=== PATIENT | female | born 1975 | race Caucasian/White ===

== ENCOUNTER 2017-05-03 05:23 | Observation (INO) | payer BC, OTHER ==
[2017-05-03] MEDS ORDERED: ROCURONIUM 50 MG INJ (07:26)
[2017-05-03] MEDS ORDERED: PROPOFOL 20 ML (07:26)
[2017-05-03] MEDS ORDERED: SUCCINYLCHOLINE CHLORIDE 100 MG/5 ML SYG IV (07:26)
[2017-05-03] MEDS ORDERED: MIDAZOLAM 1 MG/ML 2 ML INJ (07:26)
[2017-05-03] MEDS ORDERED: LIDOCAINE 1% (MDV) 20 ML INJ (07:27)
[2017-05-03] MEDS ORDERED: CEFAZOLIN 1 GM INJ (07:38)
[2017-05-03] MEDS ORDERED: FAMOTIDINE 20 MG INJ (07:41)
[2017-05-03] MEDS ORDERED: ONDANSETRON 4 MG INJ (07:41)
[2017-05-03] MEDS ORDERED: DEXAMETHASONE 4 MG/ML 1 ML INJ (07:41)
[2017-05-03] MEDS ORDERED: PHENYLephrine (100 MCG/ML) 5ML SYG ×2 (07:44→09:23)
[2017-05-03] MEDS: BUPIVACAINE 0.25% (MPF) 30 ML INJ (08:12)
[2017-05-03] MEDS: GELATIN SIZE 100 SPONGE (08:12)
[2017-05-03] MEDS: LIDOCAINE 1%/EPI 30 ML INJ (08:12)
[2017-05-03] MEDS: THROMBIN 5000 UNIT VIAL (08:12)
[2017-05-03] MEDS ORDERED: THROMBIN 5000 UNIT VIAL (09:08)
[2017-05-03] MEDS: BETAMET NA PHOS/AC(6 MG/ML) 5ML INJ (09:45)
[2017-05-03] MEDS ORDERED: SUGAMMADEX SODIUM 200 MG/2 ML VIAL IV (09:54)
[2017-05-03] MEDS ORDERED: ACETAMINOPHEN 325 MG TAB PO (10:00)
[2017-05-03] MEDS ORDERED: HYDROCODONE/APAP (5/325) TAB PO (10:00)
[2017-05-03] MEDS ORDERED: NALOXONE (0.4 MG/ML) INJ IV (10:00)
[2017-05-03] MEDS ORDERED: NACL 0.9% 3 ML SYG IV (10:00)
[2017-05-03] MEDS ORDERED: PROCHLORPERAZINE 10 MG TAB PO (10:00)
[2017-05-03] MEDS ORDERED: HYDROmorphONE (0.2 MG/ML) 10ML SYG IV (10:30)
[2017-05-03] MEDS ORDERED: METOCLOPRAMIDE 10 MG INJ IV (10:30)
[2017-05-03] MEDS: HYDROmorphONE (0.2 MG/ML) 10ML SYG IV ×4 (10:56→11:21)
[2017-05-03] MEDS: ONDANSETRON 4 MG INJ IV ×3 (11:27→18:46)
[2017-05-03] MEDS: CEFAZOLIN 1 GM/50 ML (PMX) 50 ML IVPB ×3 (12:28→23:19)
[2017-05-03] MEDS: HYDROmorphONE 0.5 MG/0.5 ML SYG IV ×4 (12:40→23:24)
[2017-05-03] MEDS: CEPASTAT LOZENGE MT (16:22)
[2017-05-03] MEDS: SUMATRIPTAN 50 MG TAB PO (20:14)
[2017-05-03] MEDS: ATORVASTATIN 10 MG TAB PO (21:00)
[2017-05-04] MEDS: HYDROmorphONE 0.5 MG/0.5 ML SYG IV (03:40)
[2017-05-04 04:46] LABS: ADD MAN DIFF? NO
[2017-05-04 04:49] LABS: BASOPHILS % 0.3 % (0.0-2.0); HEMATOCRIT 35.2 % (37.0-47.0); LYMPHOCYTES # 1.7 10^3/ul (0.8-2.9); LYMPHOCYTES % 14.2 % (15.0-51.0); MEAN CORPUSCULAR HEMOGLOBIN 28.6 pg (29.0-33.0); MEAN CORPUSCULAR HGB CONC 34.1 g/dl (32.0-37.0); MEAN CORPUSCULAR VOLUME 83.8 fl (82.0-101.0); MEAN PLATELET VOLUME 10.2 fl (7.4-10.4); MONOCYTE # 0.8 10^3/ul (0.3-0.9); MONOCYTES % 6.5 % (0.0-11.0); NEUTROPHIL # 9.4 10^3/ul (1.6-7.5); NEUTROPHILS % 78.6 % (39.0-77.0); PLATELET COUNT 185 10^3/UL (140-415); RED CELL DISTRIBUTION WIDTH 13.1 % (11.5-14.5)
[2017-05-04 04:49] LABS: WHITE BLOOD COUNT 11.9 10^3/ul (4.8-10.8)
[2017-05-04 05:16] LABS: ALANINE AMINOTRANSFERASE 33 IU/L (13-69); ALBUMIN 4.2 g/dl (3.3-4.9); ALBUMIN/GLOBULIN RATIO 1.61; ALKALINE PHOSPHATASE 42 IU/L (42-121); ANION GAP 18 (8-16); ASPARTATE AMINO TRANSFERASE 40 IU/L (15-46); BILIRUBIN,INDIRECT 0.5 mg/dl (0-1.1); BILIRUBIN,TOTAL 0.5 mg/dl (0.2-1.3); BLOOD UREA NITROGEN 10 mg/dl (7-20); CALCIUM 9.6 mg/dl (8.4-10.2); CARBON DIOXIDE 25 mmol/L (21-31); CHLORIDE 106 mmol/L (97-110); CREATININE 0.71 mg/dl (0.44-1.00); GLUCOSE 110 mg/dl (70-220); POTASSIUM 4.6 mmol/L (3.5-5.1); SODIUM 144 mmol/L (135-144); TOTAL PROTEIN 6.8 g/dl (6.1-8.1)
[2017-05-04] MEDS: CEFAZOLIN 1 GM/50 ML (PMX) 50 ML IVPB (06:02)
[2017-05-04] MEDS: CEPASTAT LOZENGE MT (08:18)
[2017-05-04] MEDS: HYDROCODONE/APAP (5/325) TAB PO ×2 (08:20→12:13)
== END 2017-05-04 15:40 | disposition home or self-care (01) ==
LOC: SDS 05:23 → REC 09:56 → MS1 12:00
DX: M51.16 Intervertebral disc disorders with radiculopathy, lumbar region (principal); E78.5 Hyperlipidemia, unspecified
CPT/HCPCS: 63030; 72020; 80053; 85025; 88304; 97116; 97164; 97530; 99217

== ENCOUNTER 2017-10-04 09:18 | Observation (INO) | payer BC, OTHER ==
[~2017-10-04 09:18] MED LIST: CEFAZOLIN 1 GM INJ; ROCURONIUM 50 MG INJ
[2017-10-04] MEDS: CEFAZOLIN 2 GM/50 ML (PMX) 50 ML IVPB (11:30)
[2017-10-04] MEDS ORDERED: LACTATED RINGER'S 1,000 ML IV* (12:30)
[2017-10-04] MEDS ORDERED: PROPOFOL 20 ML (14:34)
[2017-10-04] MEDS ORDERED: SUCCINYLCHOLINE CHLORIDE 100 MG/5 ML SYG IV (14:34)
[2017-10-04] MEDS ORDERED: FENTAnyl 50 MCG/ML VIAL (14:35)
[2017-10-04] MEDS ORDERED: MIDAZOLAM 1 MG/ML 2 ML INJ (14:35)
[2017-10-04] MEDS ORDERED: LIDOCAINE 1% (MDV) 20 ML INJ (14:35)
[2017-10-04] MEDS: BUPIVACAINE 0.25%/EPI (SDV) 30 ML INJ (15:20)
[2017-10-04] MEDS: GELATIN SIZE 100 SPONGE (15:21)
[2017-10-04] MEDS: THROMBIN 5000 UNIT VIAL (15:21)
[2017-10-04] MEDS: POLYMYXIN/BACITRACIN 1L IRRIG (15:22)
[2017-10-04] MEDS: BETAMET NA PHOS/AC(6 MG/ML) 5ML INJ (17:07)
[2017-10-04] MEDS ORDERED: HYDROmorphONE 1 MG/5 ML IV SYRINGE IV (17:28)
[2017-10-04] MEDS ORDERED: NALOXONE (0.4 MG/ML) INJ IV (17:30)
[2017-10-04] MEDS ORDERED: NACL 0.9% 3 ML SYG IV (17:30)
[2017-10-04] MEDS ORDERED: HYDROCODONE/APAP (5/325) TAB PO (17:30)
[2017-10-04] MEDS ORDERED: ACETAMINOPHEN 325 MG TAB PO (17:30)
[2017-10-04] MEDS ORDERED: PROCHLORPERAZINE 10 MG TAB PO (17:30)
[2017-10-04] MEDS: HYDROmorphONE 1 MG/5 ML IV SYRINGE IV ×3 (17:40→18:10)
[2017-10-04] MEDS: ALBUTEROL 0.083% (NEB) 2.5 MG/3 ML AMP HHN (17:48)
[2017-10-04] MEDS: ACETAMINOPHEN 1000MG/100ML IV 100 ML IVPB (17:57)
[2017-10-04] MEDS: ONDANSETRON 4 MG INJ IV (17:57)
[2017-10-04] MEDS: MEPERIDINE 25 MG INJ IV (17:57)
[2017-10-04] MEDS: HYDROCODONE/APAP (5/325) TAB PO (17:58)
[2017-10-04] MEDS: DEXAMETHASONE 10 MG/ML 1 ML INJ IV (18:12)
[2017-10-04] MEDS: SUMATRIPTAN 6 MG/0.5 ML INJ SC (18:12)
[2017-10-04] MEDS: CEFAZOLIN 1 GM/50 ML (PMX) 50 ML IVPB (18:59)
[2017-10-04] MEDS: TOPIRAMATE SPRINKLE 25 MG CAP PO (19:00)
[2017-10-04] MEDS: DEXTROSE 5%-0.9% NACL 1,000 ML IV (21:27)
[2017-10-04] MEDS: TOPIRAMATE 25 MG TAB PO (21:27)
[2017-10-04] MEDS: HYDROmorphONE 0.5 MG/0.5 ML SYG IV (21:28)
[2017-10-05] MEDS: CEFAZOLIN 1 GM/50 ML (PMX) 50 ML IVPB ×3 (00:29→11:33)
[2017-10-05] MEDS: METOCLOPRAMIDE 10 MG INJ IV ×4 (00:30→20:26)
[2017-10-05] MEDS: HYDROmorphONE 0.5 MG/0.5 ML SYG IV ×6 (00:30→21:34)
[2017-10-05] MEDS: HYDROCODONE/APAP (5/325) TAB PO ×5 (03:26→20:26)
[2017-10-05 05:40] LABS: HEMATOCRIT 35.9 % (37.0-47.0)
[2017-10-05 06:15] LABS: ANION GAP 12 (8-16); BLOOD UREA NITROGEN 8 mg/dl (7-20); CALCIUM 9.3 mg/dl (8.4-10.2); CARBON DIOXIDE 24 mmol/L (21-31); CHLORIDE 109 mmol/L (97-110); CREATININE 0.52 mg/dl (0.44-1.00); GLUCOSE 157 mg/dl (70-220); POTASSIUM 4.4 mmol/L (3.5-5.1); SODIUM 141 mmol/L (135-144)
[2017-10-05] MEDS: DEXTROSE 5%-0.9% NACL 1,000 ML IV ×2 (07:00→15:55)
[2017-10-05] MEDS: SOD CHLORIDE 0.9% 250 ML IV (11:33)
[2017-10-05] MEDS: METHYLPREDNISOLONE 40 MG INJ IV (13:24)
[2017-10-05] MEDS: CYCLOBENZAPRINE 10 MG TAB PO (13:24)
[2017-10-06] MEDS: HYDROCODONE/APAP (5/325) TAB PO ×4 (00:28→12:05)
[2017-10-06] MEDS: DEXTROSE 5%-0.9% NACL 1,000 ML IV ×2 (02:00→11:38)
[2017-10-06] MEDS: CYCLOBENZAPRINE 10 MG TAB PO (08:17)
[2017-10-06] MEDS: METOCLOPRAMIDE 10 MG INJ IV (08:17)
== END 2017-10-06 13:11 | disposition home or self-care (01) ==
LOC: SDS 09:18 → MS1 19:35 → SDS 19:34 → MS1 19:35 → REC 17:25 → MS1 19:35
DX: M51.16 Intervertebral disc disorders with radiculopathy, lumbar region (principal); E78.5 Hyperlipidemia, unspecified
CPT/HCPCS: 63030; 72114; 80048; 84703; 85014; 85018; 94664; 97116; 97161; 97530

== ENCOUNTER 2018-08-15 06:20 | Inpatient (IN) | payer BC, OTHER ==
[2018-08-15] MEDS: CEFAZOLIN 2 GM/50 ML (PMX) 50 ML IVPB (07:00)
[2018-08-15] MEDS: LACTATED RINGER'S 1,000 ML (ENTER RATE) IV (07:08)
[2018-08-15] MEDS ORDERED: LORAZEPAM 2 MG INJ IV (07:30)
[2018-08-15] MEDS ORDERED: LABETALOL HCL 20MG INJ IV (07:30)
[2018-08-15] MEDS ORDERED: HYDROmorphONE 1 MG/5 ML IV SYRINGE IV (07:30)
[2018-08-15] MEDS ORDERED: LIDOCAINE 1% (MDV) 20 ML INJ (07:49)
[2018-08-15] MEDS ORDERED: MIDAZOLAM 1 MG/ML 2 ML INJ ×2 (07:49→12:16)
[2018-08-15] MEDS ORDERED: DESFLURANE 15 MIN (07:49)
[2018-08-15] MEDS ORDERED: SUCCINYLCHOLINE CHLORIDE 100 MG/5 ML SYG IV (07:49)
[2018-08-15] MEDS ORDERED: CA CHLORIDE 10% 10 ML SYRINGE (07:49)
[2018-08-15] MEDS ORDERED: PROPOFOL 20 ML (07:49)
[2018-08-15] MEDS ORDERED: EPINEPHrine 0.1 MG/ML SYG (07:49)
[2018-08-15] MEDS ORDERED: PHENYLephrine (100 MCG/ML) 10ML SYG (07:49)
[2018-08-15] MEDS ORDERED: ONDANSETRON 4 MG INJ ×2 (08:16→12:50)
[2018-08-15] MEDS ORDERED: DEXAMETHASONE 4 MG/ML 5 ML INJ (08:16)
[2018-08-15] MEDS ORDERED: CEFAZOLIN 1 GM INJ ×2 (08:16→12:50)
[2018-08-15] MEDS ORDERED: PHENYLephrine 10 MG INJ ×2 (09:35→12:16)
[2018-08-15] MEDS: POLYMYXIN/BACITRACIN 1L IRRIG (09:42)
[2018-08-15] MEDS: BUPIVACAINE 0.25%/EPI (SDV) 30 ML INJ ×2 (09:43→11:45)
[2018-08-15] MEDS: GELATIN SIZE 100 SPONGE (09:43)
[2018-08-15] MEDS: SURGIFOAM POWDER 1 GM KIT (09:43)
[2018-08-15] MEDS: THROMBIN 5000 UNIT VIAL (09:44)
[2018-08-15] MEDS ORDERED: ROPIVACAINE 0.5 % 30 ML VIAL (12:59)
[2018-08-15] MEDS ORDERED: PROCHLORPERAZINE 10 MG TAB PO (14:00)
[2018-08-15] MEDS ORDERED: HYDROCODONE/APAP (5/325) TAB PO (14:00)
[2018-08-15] MEDS ORDERED: NALOXONE (0.4 MG/ML) INJ IV (14:00)
[2018-08-15] MEDS ORDERED: ACETAMINOPHEN 325 MG TAB PO (14:00)
[2018-08-15] MEDS: MEPERIDINE 25 MG INJ IV (14:08)
[2018-08-15] MEDS: ONDANSETRON 4 MG INJ IV ×2 (14:09→18:10)
[2018-08-15] MEDS: HYDROmorphONE 1 MG/5 ML IV SYRINGE IV ×2 (14:20→14:48)
[2018-08-15] MEDS: HYDROmorphONE 0.2 MG/ML PCA IV (14:27)
[2018-08-15] MEDS: SUMATRIPTAN 50 MG TAB PO (14:48)
[2018-08-15] MEDS: DEXAMETHASONE 10 MG/ML 1 ML INJ IV (15:14)
[2018-08-15] MEDS: CEFAZOLIN 1 GM/50 ML (PMX) 50 ML IVPB ×2 (18:10→23:26)
[2018-08-15] MEDS: CYCLOBENZAPRINE 10 MG TAB PO (18:10)
[2018-08-15] MEDS: ATORVASTATIN 10 MG TAB PO (20:34)
[2018-08-15] MEDS: TOPIRAMATE 25 MG TAB PO (20:34)
[2018-08-15] MEDS: D5W-0.45 NACL + KCL 20 MEQ 1,000 ML IV (20:34)
[2018-08-15] MEDS: GABAPENTIN 300 MG CAP PO (20:34)
[2018-08-16 05:29] LABS: ADD MAN DIFF? NO
[2018-08-16 05:32] LABS: BASOPHILS % 0.1 % (0.0-2.0); LYMPHOCYTES # 1.4 10^3/ul (0.8-2.9); LYMPHOCYTES % 14.7 % (15.0-51.0); MEAN CORPUSCULAR HEMOGLOBIN 29.5 pg (29.0-33.0); MEAN CORPUSCULAR HGB CONC 33.3 g/dl (32.0-37.0); MEAN CORPUSCULAR VOLUME 88.5 fl (82.0-101.0); MEAN PLATELET VOLUME 10.4 fl (7.4-10.4); MONOCYTE # 0.7 10^3/ul (0.3-0.9); MONOCYTES % 7.8 % (0.0-11.0); NEUTROPHIL # 7.2 10^3/ul (1.6-7.5); PLATELET COUNT 137 10^3/UL (140-415); RED BLOOD COUNT 3.73 10^6/ul (4.20-5.40); RED CELL DISTRIBUTION WIDTH 12.8 % (11.5-14.5)
[2018-08-16 05:32] LABS: WHITE BLOOD COUNT 9.3 10^3/ul (4.8-10.8)
[2018-08-16 05:47] LABS: PHOSPHORUS 3.6 mg/dl (2.5-4.9)
[2018-08-16 05:47] LABS: MAGNESIUM 1.9 mg/dl (1.7-2.5)
[2018-08-16 06:03] LABS: ANION GAP 7 (5-13); BLOOD UREA NITROGEN 6 mg/dl (7-20); CALCIUM 9.1 mg/dl (8.4-10.2); CARBON DIOXIDE 26 mmol/L (21-31); CHLORIDE 113 mmol/L (97-110); Estimated GFR > 60 mL/min (>60); GLUCOSE 134 mg/dl (70-220); POTASSIUM 4.6 mmol/L (3.5-5.1); SODIUM 146 mmol/L (135-144)
[2018-08-16] MEDS: CEFAZOLIN 1 GM/50 ML (PMX) 50 ML IVPB ×2 (06:05→11:58)
[2018-08-16] MEDS: D5W-0.45 NACL + KCL 20 MEQ 1,000 ML IV ×2 (06:05→17:31)
[2018-08-16] MEDS: DEXAMETHASONE 10 MG/ML 1 ML INJ IV (09:46)
[2018-08-16] MEDS: GABAPENTIN 300 MG CAP PO ×2 (09:46→22:17)
[2018-08-16] MEDS: DOCUSATE SODIUM 100 MG CAP PO ×2 (09:46→22:17)
[2018-08-16] MEDS ORDERED: SUMATRIPTAN 50 MG TAB PO ×2 (10:00→16:30)
[2018-08-16] MEDS: SUMATRIPTAN 50 MG TAB PO ×3 (10:11→11:58)
[2018-08-16] MEDS: HYDROmorphONE 0.2 MG/ML PCA IV (13:11)
[2018-08-16] MEDS: ATORVASTATIN 10 MG TAB PO (22:17)
[2018-08-16] MEDS: TOPIRAMATE 25 MG TAB PO (22:17)
[2018-08-17] MEDS: D5W-0.45 NACL + KCL 20 MEQ 1,000 ML IV ×3 (03:34→18:14)
[2018-08-17 05:00] LABS: ADD MAN DIFF? NO
[2018-08-17 05:06] LABS: BASOPHILS % 0.2 % (0.0-2.0); EOSINOPHILS % 0.1 % (0.0-7.0); HEMATOCRIT 32.1 % (37.0-47.0); HEMOGLOBIN 10.5 g/dl (12.0-16.0); LYMPHOCYTES # 2.3 10^3/ul (0.8-2.9); LYMPHOCYTES % 24.6 % (15.0-51.0); MEAN CORPUSCULAR HEMOGLOBIN 28.9 pg (29.0-33.0); MEAN CORPUSCULAR HGB CONC 32.7 g/dl (32.0-37.0); MEAN CORPUSCULAR VOLUME 88.4 fl (82.0-101.0); MEAN PLATELET VOLUME 9.9 fl (7.4-10.4); MONOCYTE # 0.7 10^3/ul (0.3-0.9); NEUTROPHIL # 6.1 10^3/ul (1.6-7.5); NEUTROPHILS % 66.8 % (39.0-77.0); PLATELET COUNT 129 10^3/UL (140-415); RED BLOOD COUNT 3.63 10^6/ul (4.20-5.40); RED CELL DISTRIBUTION WIDTH 12.9 % (11.5-14.5)
[2018-08-17 05:06] LABS: WHITE BLOOD COUNT 9.1 10^3/ul (4.8-10.8)
[2018-08-17 05:34] LABS: ANION GAP 5 (5-13); BLOOD UREA NITROGEN 9 mg/dl (7-20); CARBON DIOXIDE 28 mmol/L (21-31); CHLORIDE 110 mmol/L (97-110); CREATININE 0.52 mg/dl (0.44-1.00); Estimated GFR > 60 mL/min (>60); GLUCOSE 120 mg/dl (70-220); MAGNESIUM 2.1 mg/dl (1.7-2.5); PHOSPHORUS 2.6 mg/dl (2.5-4.9); POTASSIUM 4.3 mmol/L (3.5-5.1); SODIUM 143 mmol/L (135-144)
[2018-08-17] MEDS ORDERED: DIPHENHYDRAMINE 25 MG CAP PO (08:00)
[2018-08-17] MEDS: GABAPENTIN 300 MG CAP PO ×2 (09:17→20:50)
[2018-08-17] MEDS: DEXAMETHASONE 10 MG/ML 1 ML INJ IV (09:18)
[2018-08-17] MEDS: DOCUSATE SODIUM 100 MG CAP PO ×2 (09:18→20:50)
[2018-08-17] MEDS: HYDROCODONE/APAP (5/325) TAB PO ×2 (14:09→18:27)
[2018-08-17] MEDS: CYCLOBENZAPRINE 10 MG TAB PO (16:01)
[2018-08-17] MEDS: ATORVASTATIN 10 MG TAB PO (20:50)
[2018-08-17] MEDS: TOPIRAMATE 25 MG TAB PO (20:50)
[2018-08-17] MEDS: NACL 0.9% 3 ML SYG IV ×2 (21:47→21:50)
[2018-08-17] MEDS: HYDROmorphONE 0.5 MG/0.5 ML SYG IV (21:48)
[2018-08-18] MEDS: D5W-0.45 NACL + KCL 20 MEQ 1,000 ML IV (05:02)
[2018-08-18] MEDS: HYDROCODONE/APAP (5/325) TAB PO (06:15)
[2018-08-18] MEDS: DEXAMETHASONE 10 MG/ML 1 ML INJ IV (08:16)
[2018-08-18] MEDS: DOCUSATE SODIUM 100 MG CAP PO ×2 (08:17→20:31)
[2018-08-18] MEDS: GABAPENTIN 300 MG CAP PO ×2 (08:17→20:31)
[2018-08-18] MEDS: CYCLOBENZAPRINE 10 MG TAB PO ×2 (08:17→20:59)
[2018-08-18] MEDS: HYDROCODONE/APAP (10/325) TAB PO ×4 (10:24→22:18)
[2018-08-18] MEDS: ATORVASTATIN 10 MG TAB PO (20:31)
[2018-08-18] MEDS: TOPIRAMATE 25 MG TAB PO (20:31)
[2018-08-18] MEDS: AL HYDROX/MG HYDROX/SIMETH 30 ML CUP PO (22:18)
[2018-08-19] MEDS: HYDROCODONE/APAP (10/325) TAB PO ×2 (02:26→06:21)
[2018-08-19] MEDS: GABAPENTIN 300 MG CAP PO (08:26)
[2018-08-19] MEDS: DOCUSATE SODIUM 100 MG CAP PO (08:26)
[2018-08-19] MEDS: CYCLOBENZAPRINE 10 MG TAB PO (08:31)
== END 2018-08-19 10:50 | disposition home or self-care (01) | DRG 455 ==
LOC: REC 06:20 → MS1 16:21
PROVIDERS: Orthopaedic Surgery
PROC: 0SG00A0 Fusion of Lumbar Vertebral Joint with Interbody Fusion Device, Anterior Approach, Anterior Column, Open Approach (ICD-10-PCS; principal; 2018-08-15 07:30)
PROC: 0SG00K1 Fusion of Lumbar Vertebral Joint with Nonautologous Tissue Substitute, Posterior Approach, Posterior Column, Open Approach (ICD-10-PCS; 2018-08-15 07:30)
PROC: 4A11X4G Monitoring of Peripheral Nervous Electrical Activity, Intraoperative, External Approach (ICD-10-PCS; 2018-08-15 07:30)
DX: M43.16 Spondylolisthesis, lumbar region (principal); M48.061 Spinal stenosis, lumbar region without neurogenic claudication; M54.16 Radiculopathy, lumbar region; E78.5 Hyperlipidemia, unspecified
CPT/HCPCS: 72114; 72131; 80048; 83735; 84100; 85025; 86850; 86900; 86901; 87086; 97110; 97116; 97162; 97530